=== PATIENT | female | born 1995 | race Hispanic/Latino ===

== ENCOUNTER 2018-04-11 17:33 | Emergency (ER) | payer OTHER ==
[2018-04-11] MEDS ORDERED: GUAIFENESIN SUGAR-FREE 100 MG/5 ML UDCUP ONE (18:25)
[2018-04-11] MEDS ORDERED: DEXAMETHASONE SOD PHOSPHATE 10MG/ML 1ML VIAL ONE (18:25)
[2018-04-11] MEDS ORDERED: IPRATROPIUM/ALBUTEROL SULFATE 3 ML SOLUTION IH ONE (18:28)
== END 2018-04-11 20:13 | disposition home or self-care (01) ==
LOC: EDH 17:33
DX: J45.909 Unspecified asthma, uncomplicated (principal); G43.909 Migraine, unspecified, not intractable, without status migrainosus
CPT/HCPCS: 71046; 81025; 94640; 96372; 99285; J1100

== ENCOUNTER 2019-03-09 15:22 | Emergency (ER) | payer SELFPAY ==
[2019-03-09] MEDS ORDERED: IPRATROPIUM/ALBUTEROL SULFATE 3 ML SOLUTION IH ONE (15:41)
[2019-03-09] MEDS ORDERED: METHYLPREDNISOLONE SOD SUCC 125MG/2ML VIAL ONE (15:43)
== END 2019-03-09 17:14 | disposition home or self-care (01) ==
LOC: EDH 15:22
DX: J20.9 Acute bronchitis, unspecified (principal); J45.909 Unspecified asthma, uncomplicated; G43.909 Migraine, unspecified, not intractable, without status migrainosus; Z90.89 Acquired absence of other organs; Z98.890 Other specified postprocedural states; Z88.8 Allergy status to other drugs, medicaments and biological substances
CPT/HCPCS: 71046; 81025; 87804 ×2; 94640; 96372; 99285; J2930

== ENCOUNTER 2019-04-26 13:21 | Emergency (ER) | payer SELFPAY ==
[2019-04-26] MEDS ORDERED: DEXAMETHASONE SOD PHOSPHATE 10MG/ML 1ML VIAL ONE (13:49)
[2019-04-26] MEDS ORDERED: IPRATROPIUM/ALBUTEROL SULFATE 3 ML SOLUTION IH ONE (13:58)
== END 2019-04-26 14:40 | disposition home or self-care (01) ==
LOC: EDH 13:21
DX: J20.8 Acute bronchitis due to other specified organisms (principal); J45.909 Unspecified asthma, uncomplicated; G43.909 Migraine, unspecified, not intractable, without status migrainosus; Z88.8 Allergy status to other drugs, medicaments and biological substances; Z98.890 Other specified postprocedural states
CPT/HCPCS: 94640; 96372; 99283; J1100

== ENCOUNTER 2020-11-23 13:02 | Emergency (ER) | payer SELFPAY ==
[2020-11-23] MEDS ORDERED: IBUPROFEN 200 MG TAB ONE (14:23)
[2020-11-23] MEDS ORDERED: ACETAMINOPHEN EXTRA STRENGTH 500 MG TABLET ONE (14:23)
== END 2020-11-23 15:40 | disposition home or self-care (01) ==
LOC: EDH 13:02
DX: S50.01XA Contusion of right elbow, initial encounter (principal); S00.03XA Contusion of scalp, initial encounter; J45.909 Unspecified asthma, uncomplicated; G43.909 Migraine, unspecified, not intractable, without status migrainosus; Z90.49 Acquired absence of other specified parts of digestive tract; Z88.9 Allergy status to unspecified drugs, medicaments and biological substances; W18.39XA Other fall on same level, initial encounter; Y93.01 Activity, walking, marching and hiking; Y92.89 Other specified places as the place of occurrence of the external cause; Y99.8 Other external cause status
CPT/HCPCS: 73080

== ENCOUNTER 2021-01-25 16:49 | Emergency (ER) | payer OTHER ==
[~2021-01-25] VITALS: Ht 152.4 cm; Wt 74.8 kg
[2021-01-25 20:19] VITALS: BP 107/54
[2021-01-25] MEDS ORDERED: PSEU120T62 PO (21:28)
[2021-01-25] MEDS ORDERED: AMOX-429 PO (21:28)
[2021-01-25] MEDS ORDERED: IBUP-2070 PO (21:28)
[2021-01-25 21:46] VITALS: BP 110/58
== END 2021-01-25 21:52 | disposition home or self-care (01) ==
LOC: EDH 16:49
DX: J01.90 Acute sinusitis, unspecified (principal); J06.9 Acute upper respiratory infection, unspecified; J45.909 Unspecified asthma, uncomplicated; Z20.822 Contact with and (suspected) exposure to COVID-19
CPT/HCPCS: 87635; 87804 ×2; 87880; 99283; C9803

== ENCOUNTER 2022-09-10 13:42 | Emergency (ER) | payer OTHER ==
[~2022-09-10] VITALS: Ht 152.4 cm; Wt 77.1 kg
[~2022-09-10 13:42] MED LIST: AMOX-429 PO; IBUP-2070 PO; PSEU120T62 PO
[2022-09-10] MEDS ORDERED: DEXAMETHASONE SOD PHOSPHATE 4 MG/ML 1ML VIAL IM ONE (16:00)
[2022-09-10] MEDS ORDERED: ACETAMINOPHEN 500 MG TABLET PO ONE (16:00)
[2022-09-10] MEDS ORDERED: ONDANSETRON ODT 4MG TAB SL ONE (16:30)
[2022-09-10] MEDS ORDERED: ONDA4TAB10 PO (16:31)
[2022-09-10] MEDS ORDERED: ACET-66 PO (16:31)
[2022-09-10] MEDS ORDERED: AMOX500C2 PO (16:31)
[2022-09-10 16:35] VITALS: BP 124/65
== END 2022-09-10 16:41 | disposition home or self-care (01) ==
LOC: EDH 13:42
DX: J01.90 Acute sinusitis, unspecified (principal); J45.909 Unspecified asthma, uncomplicated; Z79.1 Long term (current) use of non-steroidal anti-inflammatories (NSAID); Z79.52 Long term (current) use of systemic steroids; Z79.899 Other long term (current) drug therapy; Z88.8 Allergy status to other drugs, medicaments and biological substances; Z20.822 Contact with and (suspected) exposure to COVID-19
CPT/HCPCS: 99283; 87635; 87880; 87804 ×2; 81025; 96372; J1100; C9803

== ENCOUNTER 2023-02-21 23:19 | Emergency (ER) | payer OTHER ==
[~2023-02-21] VITALS: Ht 152.4 cm; Wt 65.8 kg
[~2023-02-21 23:19] MED LIST changes: +ACET-66 PO; +AMOX500C2 PO; +ONDA4TAB10 PO
[2023-02-21 23:22] VITALS: BP 103/50; PULSE 83; RESP 18
== END 2023-02-22 02:50 | disposition left against medical advice (07) ==
LOC: EDH 23:19
DX: R10.31 Right lower quadrant pain (principal); Z53.21 Procedure and treatment not carried out due to patient leaving prior to being seen by health care provider
CPT/HCPCS: 99281

== ENCOUNTER 2024-01-16 11:59 | Emergency (ER) | payer OTHER ==
[~2024-01-16] VITALS: Ht 152.4 cm; Wt 65.8 kg
[~2024-01-16 11:59] MED LIST changes: +ONDA-243 PO; -ONDA4TAB10 PO
[2024-01-16 12:23] VITALS: PULSE 100; RESP 18
[2024-01-16] MEDS: SOLU-MEDROL 125MG VIAL IM ONE (12:25)
[2024-01-16] MEDS: ALBUTEROL 0.083% 2.5 MG/3 ML INH IH ONE (12:26)
[2024-01-16] MEDS ORDERED: ALBUHFA IH (13:12)
[2024-01-16] MEDS: DIPHENHYDRAMINE HCL 25 MG CAPSULE PO ONE (13:22)
[2024-01-16] MEDS ORDERED: DiphenhydrAMINE HCL 50 MG/ML VIAL IV ONE (13:30)
[2024-01-16 13:31] VITALS: BP 118/86; PULSE 99; RESP 18; O2SAT 100
== END 2024-01-16 13:32 | disposition home or self-care (01) ==
LOC: EDH 11:59
DX: J45.909 Unspecified asthma, uncomplicated (principal); F41.9 Anxiety disorder, unspecified; F17.200 Nicotine dependence, unspecified, uncomplicated; Z79.899 Other long term (current) drug therapy; Z90.89 Acquired absence of other organs; Z98.890 Other specified postprocedural states; Z88.8 Allergy status to other drugs, medicaments and biological substances
CPT/HCPCS: 99283; 96372; 94640; Q0163; J2919